=== PATIENT | female | born 1950 | race Caucasian/White ===

== ENCOUNTER 2019-10-31 08:05 | Emergency (ER) | payer MEDICARE ==
[~2019-10-31] VITALS: Ht 165.1 cm; Wt 65.8 kg
--- NOTE | 2019-10-31 09:33 | Diagnostic Imaging Report ---
CT of the abdomen and pelvis, without contrast, 10/31/2019. History: Right upper quadrant pain. Comparison: None available. Technique: Multidetector CT scanning of the abdomen and pelvis was performed from the level of the lung bases to the inferior pubic rami without intravenous or oral contrast. Coronal and sagittal multiplanar reformations were obtained. RADIATION DOSE: Total DLP: 497 mGy*cm Dose modulation, iterative reconstruction, and/or weight based adjustment of the mA/kV was utilized to reduce the radiation dose to as low as reasonably achievable. Discussion: Examination is limited without contrast. Lung bases: Calcified granuloma is present in the right lower lobe. Bilateral breast implants are noted. Abdomen: Calcified granulomata are present within the spleen and liver. The liver, spleen, gallbladder, biliary tree, pancreas, adrenal glands, and kidneys are otherwise unremarkable. The abdominal aorta is within normal limits. There is no bowel dilatation. There is no evidence of adenopathy or free fluid. Pelvis: The bladder, uterus, and adnexa are unremarkable. There is no evidence of free fluid or adenopathy. Bones and soft tissues: Degenerative changes are present throughout the lumbar spine without evidence of lytic or sclerotic lesion. IMPRESSION: Findings of previous granulomatous disease within the chest and abdomen. Otherwise unremarkable noncontrast CT of the abdomen and pelvis. No evidence of cholelithiasis, nephrolithiasis, or appendicitis. Signed by: Shorty Mckeon on 10/31/2019 9:31 AM
--- NOTE | 2019-10-31 10:05 | NUR ---
Ultrasound called and has a 45 min ETA
--- NOTE | 2019-10-31 10:10 | NUR ---
Pt refuses anything for pain at this time
--- NOTE | 2019-10-31 11:34 | Diagnostic Imaging Report ---
Pelvic ultrasound. History: Right lower abdominal pain Comparison: CT from earlier today. Discussion: Transabdominal and transvaginal evaluation of the pelvis was performed in the transverse and longitudinal planes. The uterus is normal in size measuring 5.9 x 2.5 x 3.8 cm, with a 0.9 cm hypoechoic posterior intramural fibroid. The endometrial stripe measures 7 mm. The right ovary measures 1.8 x 0.9 x 2.0 cm. The left ovary measures 2.2 x 0.9 x 1.2 cm. Normal arterial venous flow is present bilaterally with color Doppler and spectral waveform analysis exam. There is no evidence of an adnexal mass. There is no evidence of free fluid. IMPRESSION: 1. Small uterine fibroid. 2. Endometrium would be considered slightly thickened for a postmenopausal female unless the patient is on hormone replacement therapy. If there is history of vaginal bleeding, gynecologic consult should be considered. Otherwise unremarkable pelvic ultrasound. Signed by: Shorty Mckeon on 10/31/2019 11:32 AM
[2019-10-31] MEDS ORDERED: ULTRAM50 MG PO (12:00)
[2019-10-31 12:13] VITALS: BP 140/74
== END 2019-10-31 12:12 | disposition home or self-care (01) ==
LOC: FSED 08:05
DX: R10.31 Right lower quadrant pain (principal)
CPT/HCPCS: 74176; 76856; 80053; 81003; 85025; 99284

== ENCOUNTER → 2020-04-14 | Outpatient (CLI) | payer MEDICARE ==
[~2020-04-14] MED LIST: ULTRAM50 MG PO
--- NOTE | 2020-04-14 19:04 | Diagnostic Imaging Report ---
Hepatobiliary Scan with Gallbladder Ejection Fraction Clinical information: RUQ pain Report: Following intravenous administration of 6.5 millicuries of Tc-99m mebrofenin, dynamic images of the abdomen in the anterior projection were obtained through 60 minutes. Sincalide (CCK analog) 1.2 micrograms was administered intravenously over 30 minutes with additional imaging for determination of gallbladder ejection fraction. Perfusion to the liver is normal. Extraction of tracer from the blood pool by the liver parenchyma is normal. Tracer is seen promptly within the biliary tract. The gallbladder begins to fill by 27 minutes post-injection of tracer and fills adequately. Tracer is seen in the small bowel by 15 minutes. The gallbladder ejection fraction with administration of sincalide is 85% (normal greater than 40%). Impression: 1. Filling of the gallbladder excludes the diagnosis of acute cystic duct obstruction/acute cholecystitis. 2. Normal gallbladder ejection fraction of 85% does not support the clinical diagnosis of chronic cholecystitis/gallbladder dyskinesia. Signed by: Dr. Berenice Balderas M.D. on 04/14/2020 7:01 PM
== END ==
LOC: NM 08:59
PROVIDERS: ATTEND Internal Medicine
DX: K82.8 Other specified diseases of gallbladder (principal)
CPT/HCPCS: 78227; A9537

== ENCOUNTER 2021-02-26 17:58 | Inpatient (IN) | payer MEDICARE ==
[~2021-02-26] VITALS: Ht 165.1 cm; Wt 65.8 kg
[2021-02-26] MEDS ORDERED: ASPIRIN 81 MG CHEW TAB PO ONE (18:30)
[2021-02-26 18:57] LABS: BASOPHILS # (AUTO) 0.1 (0.0-0.1); BASOPHILS % 0.8 % (0.0-1.0); EOSINOPHILS # (AUTO) 0.1 (0.0-0.4); EOSINOPHILS % 2.3 % (0.0-6.0); HEMATOCRIT 41.8 % (34.2-44.1); HEMOGLOBIN 13.8 g/dL (12.0-16.0); LYMPHOCYTES # (AUTO) 2.4 (1.0-3.2); LYMPHOCYTES % 39.6 % (18.0-39.1); MEAN CORPUSCULAR VOLUME 93.9 fL (81-99); MONOCYTES # (AUTO) 0.6 (0.2-0.8); MONOCYTES % 9.8 % (4.4-11.3); NEUTROPHILS # (AUTO) 2.9 (2.1-6.9); NEUTROPHILS % 47.3 % (38.7-80.0); PLATELET COUNT 283 x10e3/uL (140-360); RED BLOOD COUNT 4.45 x10e6/uL (3.6-5.1); RED CELL DISTRIBUTION WIDTH 13.2 % (11.7-14.4)
[2021-02-26 19:50] LABS: ALANINE AMINOTRANSFERASE 14 IU/L (0-55); ALBUMIN 4.3 g/dL (3.5-5.0); ALBUMIN/GLOBULIN RATIO 1.4 (0.8-2.0); ALKALINE PHOSPHATASE 56 IU/L (40-150); ANION GAP 13.7 mmol/L (8-16); BLOOD UREA NITROGEN 15 mg/dL (7-26); BUN/CREATININE RATIO 19 (6-25); CALCIUM 9.5 mg/dL (8.4-10.2); CARBON DIOXIDE 26 mmol/L (22-29); CHLORIDE 105 mmol/L (98-107); CREATINE KINASE 71 IU/L (29-168); CREATININE, SERUM 0.79 mg/dL (0.57-1.11); EST GLOMERULAR FILTRATION RATE 72 ML/MIN (60-); GLUCOSE 97 mg/dL (74-118); POTASSIUM 3.7 mmol/L (3.5-5.1); SODIUM 141 mmol/L (136-145)
[2021-02-26] MEDS ORDERED: XARELTO20 MG PO (21:18)
[2021-02-26] MEDS ORDERED: VITAMIN D3 COM1 EACH PO (21:18)
[2021-02-26 21:21] VITALS: BP 159/76
[2021-02-26] MEDS ORDERED: VITAMIN D3 PO (21:21)
[2021-02-26 21:22] VITALS: BP 159/76
[2021-02-26] MEDS ORDERED: MORPHINE SULFATE INJ 4 MG/ML INJ 1ML IV PRN (21:45)
[2021-02-26] MEDS ORDERED: NITROGLYCERIN 0.4 MG SUBL SL PRN (21:45)
[2021-02-26] MEDS ORDERED: IOPAMIDOL 370 MG/ML 200 ML INFUS..BTL INJ ONE (21:57)
[2021-02-26] MEDS ORDERED: SODIUM CHLORIDE 0.9% 50ML 50 ML ONE (21:57)
[2021-02-26] MEDS: SODIUM CHLORIDE 0.9% 1000ML 1,000 ML IV SCH (22:39)
[2021-02-26 22:54] VITALS: BP 159/76
[2021-02-27 00:34] VITALS: BP 108/51
[2021-02-27 03:37] LABS: BASOPHILS # (AUTO) 0.1 (0.0-0.1); BASOPHILS % 0.9 % (0.0-1.0); EOSINOPHILS # (AUTO) 0.2 (0.0-0.4); EOSINOPHILS % 2.9 % (0.0-6.0); HEMATOCRIT 40.1 % (34.2-44.1); HEMOGLOBIN 12.9 g/dL (12.0-16.0); LYMPHOCYTES # (AUTO) 2.2 (1.0-3.2); LYMPHOCYTES % 40.4 % (18.0-39.1); MEAN CORPUSCULAR HEMOGLOBIN 30.4 pg (28-32); MEAN CORPUSCULAR HGB CONC 32.2 g/dL (31-35); MEAN CORPUSCULAR VOLUME 94.6 fL (81-99); MONOCYTES # (AUTO) 0.7 (0.2-0.8); NEUTROPHILS # (AUTO) 2.4 (2.1-6.9); NEUTROPHILS % 43.6 % (38.7-80.0); PLATELET COUNT 248 x10e3/uL (140-360); RED BLOOD COUNT 4.24 x10e6/uL (3.6-5.1); RED CELL DISTRIBUTION WIDTH 13.4 % (11.7-14.4)
[2021-02-27 03:46] LABS: CREATINE KINASE 51 IU/L (29-168)
[2021-02-27 04:01] LABS: ALBUMIN 3.5 g/dL (3.5-5.0); ALBUMIN/GLOBULIN RATIO 1.3 (0.8-2.0); ANION GAP 12.8 mmol/L (8-16); CALCIUM 8.5 mg/dL (8.4-10.2); CHOL/HDL RATIO 4.1 (3.0-3.6); CREATININE, SERUM 0.7 mg/dL (0.57-1.11); POTASSIUM 3.8 mmol/L (3.5-5.1)
[2021-02-27] MEDS: SODIUM CHLORIDE 0.9% 1000ML 1,000 ML IV SCH (04:30)
[2021-02-27 05:23] VITALS: BP 111/62
[2021-02-27 07:43] VITALS: BP 134/74
[2021-02-27 08:12] VITALS: BP 107/46
[2021-02-27] MEDS ORDERED: MIDAZOLAM HCL 2 MG/2 ML VIAL ONE (10:35)
[2021-02-27] MEDS ORDERED: HEPARIN SOD (PORCINE) 1000 UNIT/ML 30ML ONE (10:35)
[2021-02-27] MEDS ORDERED: VERAPAMIL HCL 2.5 MG/ML 2 ML VIAL ONE (10:35)
[2021-02-27] MEDS ORDERED: FENTANYL CITRATE/PF 100MCG/2 ML INJ ONE (10:38)
[2021-02-27] MEDS ORDERED: LIDOCAINE HCL 2% LOCAL 20 ML VIAL ONE (10:38)
[2021-02-27] MEDS ORDERED: NITROGLYCERIN/D5W 200 MCG/ML 250 ML ONE (10:39)
[2021-02-27] MEDS ORDERED: SODIUM CHLORIDE 0.9% 1000ML 1,000 ML ONE (10:39)
[2021-02-27] MEDS ORDERED: IOPAMIDOL 370 MG/ML 200 ML INFUS..BTL INJ ONE (10:39)
[2021-02-27] MEDS ORDERED: HEPARIN SOD/SOD CHLORIDE 2,000 ML ONE (10:39)
[2021-02-27 11:13] LABS: CREATINE KINASE 62 IU/L (29-168)
[2021-02-27 16:23] VITALS: BP 146/68
== END 2021-02-27 16:55 | disposition home or self-care (01) | DRG 287 ==
LOC: ER 18:30 → ERHOLD 18:59 → MED/SURG 20:53
PROVIDERS: ADMIT Internal Medicine; ATTEND Internal Medicine
PROC: 4A023N7 Measurement of Cardiac Sampling and Pressure, Left Heart, Percutaneous Approach (ICD-10-PCS; principal; 2021-02-27)
PROC: B2111ZZ Fluoroscopy of Multiple Coronary Arteries using Low Osmolar Contrast (ICD-10-PCS; 2021-02-27)
DX: I20.0 Unstable angina (principal); I11.9 Hypertensive heart disease without heart failure; I25.9 Chronic ischemic heart disease, unspecified; K76.0 Fatty (change of) liver, not elsewhere classified; I48.0 Paroxysmal atrial fibrillation; Z20.822 Contact with and (suspected) exposure to COVID-19
CPT/HCPCS: 36415; 71045; 71260; 80053; 80061; 82550; 82553; 83880; 84484; 85025; 93005; 93458; 99152; 99284; C1887; C1894; J1644; J2001; J2250; J3010; J7030; Q9967; U0002

== ENCOUNTER → 2022-04-18 | Outpatient (CLI) | payer MEDICARE ==
[~2022-04-18] MED LIST changes: +VITAMIN D3 COM1 EACH PO; +VITAMIN D3 PO; +XARELTO20 MG PO
== END ==
LOC: RAD 08:40
PROVIDERS: ATTEND Internal Medicine
DX: I25.10 Atherosclerotic heart disease of native coronary artery without angina pectoris (principal); M79.605 Pain in left leg; R60.9 Edema, unspecified
CPT/HCPCS: 93926; 93971